=== PATIENT | male | born 1990 | race Caucasian/White ===

== ENCOUNTER 2021-12-14 18:47 | Inpatient (IN) | payer OTHER ==
[2021-12-14 16:48] LABS: #Basophils 0.1 thou/uL (0.0-0.2); #Eosinphils 0.1 thou/uL (0.0-0.7); #Lymphocytes 2.1 thou/uL (1.20-3.40); #Monocytes 0.1 thou/uL (0.11-0.59); #Neutrophils 11.4 thou/uL (1.40-6.50); %Basophils 0.9 % (0.0-1.0); %Eosinophils 0.9 % (0.0-10.0); %Lymphocytes 15.3 % (21.0-51.0); %Monocytes 0.8 % (0.0-10.0); Hemoglobin 14.6 g/dL (14.0-18.0); Mean Corpuscular HGB CONC 34.7 g/dL (32.0-36.0); Mean Corpuscular Hemoglobin 30.7 pg (27.0-31.0); Mean Corpuscular Volume 88.4 fL (78.0-98.0); Mean Platelet Volume 7.3 fL (7.4-10.4); Platelet Count 281 thou/uL (130-400); RBC Distribution Width 12.3 % (11.5-14.5); Red Blood Cell (RBC) Count 4.75 mill/uL (4.70-6.10); White Blood Cell (WBC) Count 13.9 thou/uL (4.8-10.8)
[2021-12-14 16:58] LABS: Analyzer IN Cardio ER; Base Excess (BEa) -11.8 mEq/L (-2.0 to +3.0); CO2 Tension 37.1 mmHg (35.0-45.0); Calcium, Ionized (arterial) 1.12 mmol/L (1.12-1.30); Carboxyhemoglobin (COHb) 0.1 gm% (0.0-3.0); Hemoglobin (Hb) 14.7 g/dL (14.0-18.0); O2 Tension (PaO2), arterial 106.7 mmHg (80.0-100.0); Potassium - ABG Lab 3.24 mmol/L (3.70-5.30)
[2021-12-14 17:03] LABS: Amphetamine Not Detected (NotDetected); Barbiturates Screen Not Detected (NotDetected); Benzodiazepine Screen Not Detected (NotDetected); Cocaine Metabolite Screen Not Detected (NotDetected); Methadone Not Detected (NotDetected); Methamphetamine Not Detected (NotDetected); Opiate Screen Not Detected (NotDetected); Oxycodone Screen Not Detected (NotDetected); Phencyclidine (PCP) Not Detected (NotDetected); THC/Cannabinoid Screen Not Detected (NotDetected); Tricyclic Screen Not Detected (NotDetected)
[2021-12-14 17:05] LABS: Bacteria/HPF 4+ HPF (None Seen); Bilirubin Negative (Negative); Blood, Urine 3+ (Negative); Clarity Turbid (Clear); Glucose, Urine (Dipstick) 100 mg/dL (Negative); Ketone, Urine Trace mg/dL (Negative); Leukocyte Negative Leu/uL (Negative); Nitrite Negative (Negative); Protein, Urine (Dipstick) 300 mg/dL (Neg-Trace); RBC/HPF 21-50 HPF (0-3); Specific Gravity, Urine 1.013 (1.002-1.036); Squamous Epithelial None Seen HPF (0-3); Urobilinogen Normal mg/dL (Less than 2); pH, Urine 6.5 (5.0-9.0)
[2021-12-14 17:09] LABS: ALT (SGPT) 248 U/L (8-55); AST (SGOT) 234 U/L (5-34); Albumin 3.7 g/dL (3.5-5.0); Alkaline Phosphatase 76 U/L (40-110); Anion Gap 23 mmol/L (10-20); BUN (Urea Nitrogen) 12 mg/dL (8.9-20.6); Bilirubin, Total 1.3 mg/dL (0.2-1.2); CK (CPK) 442 U/L (30-200); Calc. Creatinine Clearance 0 mL/min (70-130); Calcium 8.2 mg/dL (7.8-10.44); Carbon Dioxide 15 mmol/L (22-29); Chloride 107 mmol/L (98-107); Globulin 2.7 g/dL (2.4-3.5); Glucose 258 mg/dL (70-105); Potassium 3.7 mmol/L (3.5-5.1); Protein, Total 6.4 g/dL (6.0-8.3); Sodium 141 mmol/L (136-145)
[2021-12-14 17:11] LABS: INR-International Normal Ratio 1.1; PTT 34.7 sec (22.9-36.1); Prothrombin Time 14.2 sec (12.0-14.7)
[2021-12-14 17:23] LABS: Acetaminophen Less than 10.0 mcg/mL (10.0-30.0); Alcohol Less than 10 mg/dL (Less than 10); Salicylate Less than 8.0 mg/dL (15.0-30.0)
[2021-12-14 17:35] LABS: ALV-art Gradient 203.425 mmHg (0-20); Puncture Site RRA; pH, Arterial 7.23 (7.35-7.45)
[2021-12-14 17:54] LABS: CKMB 12.8 ng/mL (0-6.6)
[2021-12-14 18:01] LABS: SARS-CoV-2 NAA Rapid Test Not Detected (NotDetected)
[~2021-12-14 18:47] MED LIST: EPINEPHrine 1 MG/10 ML Abboject SYRINGE ONE; EPINEPHrine 1 MG/ML VIAL ONE
[2021-12-14] MEDS ORDERED: HumaLOG 300 UNITS/3 ML VIAL SC PRN (19:12)
[2021-12-14] MEDS ORDERED: Ondansetron PF 4 MG/2 ML Vial IVP PRN (19:12)
[2021-12-14] MEDS ORDERED: Dextrose 50% Abboject 50 ML SYRINGE SLOW IVP PRN (19:12)
[2021-12-14] MEDS ORDERED: Dextrose 5% in Water 1,000 ML IV PRN (19:12)
[2021-12-14] MEDS: Lactated Ringer's 1,000 ML IV SCH (20:48)
[2021-12-14] MEDS: Norepinephrine 8 MG/0.9% NS 250 ML IVPB SCH (20:49)
[2021-12-14 21:49] LABS: Actual Bicarbonate (HCO3a) 16.6 mEq/L (22-28); Base Excess (BEa) -10.1 mEq/L (-2.0 to +3.0); Calcium, Ionized (arterial) 1.18 mmol/L (1.12-1.30); Carboxyhemoglobin (COHb) 0.2 gm% (0.0-3.0); O2 Tension (PaO2), arterial 146.1 mmHg (80.0-100.0); Potassium - ABG Lab 3.57 mmol/L (3.70-5.30)
[2021-12-14 21:50] LABS: Hemoglobin (Hb) 20.1 g/dL (14.0-18.0); pH, Arterial 7.24 (7.35-7.45)
[2021-12-14 21:51] LABS: Puncture Site LFA
[2021-12-14 22:55] VITALS: TEMP 97.5
[2021-12-15] MEDS: Lactated Ringer's 1,000 ML IV SCH (04:07)
[2021-12-15 04:19] LABS: Troponin I 26.607 ng/mL (< 0.028)
[2021-12-15 04:22] LABS: ALT (SGPT) 345 U/L (8-55); AST (SGOT) 418 U/L (5-34); Albumin 4.4 g/dL (3.5-5.0); Alkaline Phosphatase 85 U/L (40-110); Anion Gap 20 mmol/L (10-20); BUN (Urea Nitrogen) 20 mg/dL (8.9-20.6); Bilirubin, Total 1.6 mg/dL (0.2-1.2); Calc. Creatinine Clearance 76 mL/min (70-130); Calcium 9.4 mg/dL (7.8-10.44); Carbon Dioxide 13 mmol/L (22-29); Chloride 114 mmol/L (98-107); Globulin 3.7 g/dL (2.4-3.5); Glucose 131 mg/dL (70-105); Protein, Total 8.1 g/dL (6.0-8.3); Sodium 142 mmol/L (136-145)
[2021-12-15] MEDS: Famotidine/PF 20 mg/2ml Vial SLOW IVP SCH ×2 (04:26→09:30)
[2021-12-15] MEDS: Norepinephrine 8 MG/0.9% NS 250 ML IVPB SCH (05:52)
[2021-12-15] MEDS ORDERED: Sodium Bicarb 50 MEQ/50 ML VIAL ONE (05:54)
[2021-12-15] MEDS ORDERED: Sodium Chloride 0.9% 1,000 ML IV SCH ×2 (06:00→07:30)
[2021-12-15] MEDS ORDERED: Sodium Bicarb 50 MEQ/50 ML VIAL IVP SCH (06:00)
[2021-12-15] MEDS ORDERED: Vasopressin 20 UNIT, Admixture Fee 1 EACH in Sodium Chloride 0.9% 50 ML IV SCH ×2 (06:00→15:00)
[2021-12-15] MEDS ORDERED: Sodium Bicarb 50 MEQ/50 ML Abboject 8.4% SYRINGE IVP SCH (06:15)
[2021-12-15 06:19] LABS: Magnesium 2.5 mg/dL (1.6-2.6)
[2021-12-15 06:23] VITALS: BMI 32.3
[2021-12-15 06:44] LABS: Hemoglobin 19.6 g/dL (14.0-18.0); Mean Corpuscular HGB CONC 32.7 g/dL (32.0-36.0); Mean Corpuscular Hemoglobin 29.6 pg (27.0-31.0); Mean Corpuscular Volume 90.4 fL (78.0-98.0); Mean Platelet Volume 7.2 fL (7.4-10.4); Platelet Count 258 thou/uL (130-400); RBC Distribution Width 12.2 % (11.5-14.5); Red Blood Cell (RBC) Count 6.65 mill/uL (4.70-6.10); White Blood Cell (WBC) Count 12.7 thou/uL (4.8-10.8)
[2021-12-15 07:22] LABS: Actual Bicarbonate (HCO3a) 15.4 mEq/L (22-28); Base Excess (BEa) -8.4 mEq/L (-2.0 to +3.0); CO2 Tension 29.8 mmHg (35.0-45.0); Calcium, Ionized (arterial) 1.14 mmol/L (1.12-1.30); Carboxyhemoglobin (COHb) 0.3 gm% (0.0-3.0); O2 Tension (PaO2), arterial 131.5 mmHg (80.0-100.0); Potassium - ABG Lab 5.05 mmol/L (3.70-5.30); pH, Arterial 7.33 (7.35-7.45)
[2021-12-15 07:25] LABS: Hemoglobin (Hb) 21.7 g/dL (14.0-18.0); Puncture Site LRA
[2021-12-15 07:49] LABS: Band 22 % (5-11); Lymphocytes 5 % (21-51); MDiff Complete? YES; Monocytes 8 % (0-10); Neutrophil 65 % (42-75); Platelet Morphology Comment Appears Adequate
[2021-12-15 10:13] VITALS: BP 170/133
== END 2021-12-15 12:40 | disposition home or self-care (01) | DRG 922 ==
LOC: SDC/OP 18:47 → CCU 19:50 → EEVIPCON 20:00 → CCU 20:00
PROVIDERS: ADMIT Internal Medicine; ATTEND Internal Medicine
PROC: 5A1935Z Respiratory Ventilation, Less than 24 Consecutive Hours (ICD-10-PCS; principal; 2021-12-14)
PROC: 0D9770Z Drainage of Stomach, Pylorus with Drainage Device, Via Natural or Artificial Opening (ICD-10-PCS; 2021-12-14)
PROC: 3E033XZ Introduction of Vasopressor into Peripheral Vein, Percutaneous Approach (ICD-10-PCS; 2021-12-14)
DX: T71.162A Asphyxiation due to hanging, intentional self-harm, initial encounter (principal); I46.9 Cardiac arrest, cause unspecified; G93.41 Metabolic encephalopathy; I21.A1 Myocardial infarction type 2; J96.00 Acute respiratory failure, unspecified whether with hypoxia or hypercapnia; G93.1 Anoxic brain damage, not elsewhere classified; N17.9 Acute kidney failure, unspecified; E87.2 Acidosis; Z20.822 Contact with and (suspected) exposure to COVID-19; Z91.012 Allergy to eggs; Z91.018 Allergy to other foods
CPT/HCPCS: 36415; 36416; 36600; 51702; 70450; 70498; 71045; 72125; 74018; 78610; 80053; 80306; 80307; 81003; 81015; 82550; 82553; 82805; 83735; 84443; 84484; 85025; 85610; 85730; 86850; 86900; 86901; 93005; 94002; 94003; 95816; 95819; 95957; 96365; 96366; 99292; A9521; J0171; J7050; J7120; S0028; U0002